=== PATIENT | female | born 1960 | race Caucasian/White ===

== ENCOUNTER 2021-10-02 09:06 | Day surgery (SDC) | payer MEDICARE, OTHER ==
[~2021-10-02 09:06] MED LIST: AMLO-258 PO; KETOROLAC TROMETHAMINE 0.5% 5 ML OPHTHALMIC SOLUTION ONE; METF-1211 PO; MOXIFLOXACIN HCL 0.5% 3 ML OPHTHALMIC SOLUTION ONE; PHENYLEPHRINE HCL 2.5% 2 ML OPHTHALMIC SOLUTION ONE; RINGERS SOLUTION,LACTATED 500 ML IV ONE; RISP3TAB35 PO; TRAZ150T80 PO; TROPICAMIDE 1% 2 ML OPHTHALMIC SOLUTION ONE
[2021-10-02] MEDS ORDERED: TETRACAINE HCL/PF 0.5% 4 ML OPHTHALMIC SOLUTION OU ONE (09:07)
[2021-10-02] MEDS ORDERED: LIDOCAINE/PF 1% 2 ML VIAL IM ONE (09:07)
[2021-10-02] MEDS ORDERED: POVIDONE-IODINE 10% 15 ML SOLUTION UD TP ONE (09:07)
[2021-10-02] MEDS ORDERED: EPINEPHrine 1:1,000 [1 MG/ML] VIAL IM ONE (09:07)
[2021-10-02] MEDS ORDERED: FentaNYL CITRATE PF 100 MCG/2 ML VIAL IVP ONE (09:07)
[2021-10-02] MEDS ORDERED: CHONDR SULF A SOD/HYALURONATE 1.05 ML KIT IO ONE (09:07)
[2021-10-02] MEDS ORDERED: BALANCED SALT 15 ML OPHTHALMIC IRRIG.SOLN OU ONE (09:07)
[2021-10-02] MEDS ORDERED: MIDAZOLAM HCL 2 MG/2 ML VIAL IVP ONE (09:07)
[2021-10-02 09:36] LABS: COVID AG,FIA SOURCE NASOPHARYNGEAL
[2021-10-02] MEDS ORDERED: PHENYLEPHRINE HCL 2.5% 2 ML OPHTHALMIC SOLUTION ONE (09:59)
[2021-10-02] MEDS: KETOROLAC TROMETHAMINE 0.5% 5 ML OPHTHALMIC SOLUTION OD SCH ×3 (10:15→10:23)
[2021-10-02] MEDS: TROPICAMIDE 1% 2 ML OPHTHALMIC SOLUTION OD SCH ×3 (10:16→10:23)
[2021-10-02] MEDS: MOXIFLOXACIN HCL 0.5% 3 ML OPHTHALMIC SOLUTION OD SCH ×3 (10:16→10:23)
[2021-10-02] MEDS: PHENYLEPHRINE HCL 2.5% 2 ML OPHTHALMIC SOLUTION OD SCH ×3 (10:17→10:23)
[2021-10-02] MEDS ORDERED: LURA40TA2 PO (10:21)
[2021-10-02] MEDS ORDERED: CHOL500013 PO (10:21)
[2021-10-02] MEDS ORDERED: BENZ0.5T49 PO (10:21)
[2021-10-02] MEDS ORDERED: FAMO20 PO (10:21)
[2021-10-02] MEDS ORDERED: COSO10OS OU (10:21)
[2021-10-02] MEDS ORDERED: MULT-1203 PO (10:21)
[2021-10-02 10:25] LABS: GLUCOMETER DEV NAME(LOC) SDS.; GLUCOSE,POINT OF CARE 125 MG/DL (70-110)
== END 2021-10-02 11:50 | disposition home or self-care (01) ==
LOC: SURGERY 09:06
PROVIDERS: ATTEND Ophthalmology
DX: E11.36 Type 2 diabetes mellitus with diabetic cataract (principal); H25.11 Age-related nuclear cataract, right eye; R62.59 Other lack of expected normal physiological development in childhood; Z79.899 Other long term (current) drug therapy
CPT/HCPCS: 66984; 82962; 87426; 93005; C9803; J0171; J2250; J3010; J3490; J7120; Q9967; V2632